=== PATIENT | male | born 1950 | race Caucasian/White ===

== ENCOUNTER 2020-11-01 18:16 | Emergency (ER) | payer MEDICARE ==
[~2020-11-01 18:16] MED LIST: ALTACE10 MG PO; ARICEPT10 MG PO; ASPIRIN EC81 MG PO; CELEXA20 MG PO; CLOPIDOGREL75 MG PO; CYANOCOBAL1000 MCG/1 INJ; DEXILANT60 MG PO; FISH OIL 1,0001 EACH PO; FLEXERIL 10 MG10 MG PO; GLUCOPHAGE1000 MG PO; ISOSORBIDE MONO30 MG PO; LEVAQUIN500 MG PO; LIPITOR TAB 2020 MG PO; LOPRESSOR50 MG PO; NORVASC 5 MG TAB5 MG PO; PLAVIX 75 MG TA75 MG PO; PRAVACHOL20 MG PO; SYNTHROID 150150 MCG PO; TYLENOL #3 PO; VITAMIN D250000 UNIT PO; ZANTAC150 MG PO
[2020-11-01 19:44] LABS: HEMOGLOBIN 13.6 gm/dl (14.0-17.5); RED BLOOD COUNT 4.74 M/UL (4.20-5.50); WHITE BLOOD COUNT 9.2 K/UL (4.5-11.0)
[2020-11-01 20:06] LABS: BUN/CREATININE RATIO 18 (0-10)
== END 2020-11-01 23:37 | disposition home or self-care (01) ==
LOC: ER1 18:16
PROVIDERS: Family Medicine
DX: R07.89 Other chest pain (principal); I45.10 Unspecified right bundle-branch block; I10 Essential (primary) hypertension; E11.9 Type 2 diabetes mellitus without complications; I25.10 Atherosclerotic heart disease of native coronary artery without angina pectoris; F17.290 Nicotine dependence, other tobacco product, uncomplicated; Z79.82 Long term (current) use of aspirin; Z86.73 Personal history of transient ischemic attack (TIA), and cerebral infarction without residual deficits; Z95.1 Presence of aortocoronary bypass graft
CPT/HCPCS: 71045; 80053; 82550; 82553; 83874; 84484; 85025; 85610; 93005; 99285

== ENCOUNTER → 2021-03-01 | Outpatient (CLI) | payer MEDICARE | LOC: HEART 5 09:20 | DX: J60 Coalworker's pneumoconiosis (principal) | CPT/HCPCS: 94010 ==

== ENCOUNTER → 2021-10-31 | Day surgery (SDC) | payer MEDICARE ==
[~2021-10-31] MED LIST changes: +ANORO ELLIPTA1 EACH INH; +VITAMIN B-1100 MG/ML IM
== END | disposition home or self-care (01) ==
LOC: OR 07:43
DX: K29.50 Unspecified chronic gastritis without bleeding (principal); K31.9 Disease of stomach and duodenum, unspecified; K64.2 Third degree hemorrhoids; K64.1 Second degree hemorrhoids; K62.4 Stenosis of anus and rectum; E66.3 Overweight; I10 Essential (primary) hypertension; E11.9 Type 2 diabetes mellitus without complications; I25.2 Old myocardial infarction; Z68.25 Body mass index [BMI] 25.0-25.9, adult; Z79.82 Long term (current) use of aspirin; Z79.02 Long term (current) use of antithrombotics/antiplatelets; Z79.84 Long term (current) use of oral hypoglycemic drugs; Z79.899 Other long term (current) drug therapy; Z20.822 Contact with and (suspected) exposure to COVID-19
CPT/HCPCS: 82962; 88342; J7040; U0002

== ENCOUNTER → 2022-05-23 | Outpatient (CLI) | payer MEDICARE | LOC: ECHO 12:45 | DX: I50.22 Chronic systolic (congestive) heart failure (principal); I25.5 Ischemic cardiomyopathy; I08.3 Combined rheumatic disorders of mitral, aortic and tricuspid valves; I70.0 Atherosclerosis of aorta | CPT/HCPCS: ECHO; 93306 ==

== ENCOUNTER → 2022-08-01 | Outpatient (CLI) | payer MEDICARE ==
[~2022-08-01] MED LIST changes: +ALDACTONE25 MG PO; +CLEOCIN HCL300 MG PO; +DIGOX125 MCG PO; +HYDROCODON-ACE1 EAC4 PO; +LASIX 40 MG TAB40 MG PO; +LEVOFLOXACIN500 MG PO; +LEXAPRO TAB 1010 MG PO; +PROTONIX 40 MG40 M1 PO; -SYNTHROID 150150 MCG PO; +SYNTHROID125 MCG PO; +VITAMIN D21250 MCG PO
[2022-08-01 10:23] LABS: HEMOGLOBIN 12.3 gm/dl (14.0-17.5); RED BLOOD COUNT 4.09 M/UL (4.20-5.50); WHITE BLOOD COUNT 10.9 K/UL (4.5-11.0)
[2022-08-01 11:02] LABS: BUN/CREATININE RATIO 18 (0-10)
== END ==
LOC: LAB 09:36
PROVIDERS: Internal Medicine Cardiovascular Disease
DX: Z45.09 Encounter for adjustment and management of other cardiac device (principal); I25.10 Atherosclerotic heart disease of native coronary artery without angina pectoris; I25.5 Ischemic cardiomyopathy; I50.22 Chronic systolic (congestive) heart failure; I45.4 Nonspecific intraventricular block; I48.0 Paroxysmal atrial fibrillation
CPT/HCPCS: 36415; 71045; 80048; 85025